=== PATIENT | female | born 1990 | race Caucasian/White ===

== ENCOUNTER 2016-03-04 19:19 | Inpatient (IN) | payer MEDICAID, OTHER ==
[~2016-03-04] VITALS: Ht 157.5 cm; Wt 96.6 kg
[~2016-03-04 19:19] MED LIST: ASEN5TAB7 SL; BUPR300T51 PO; PPI PO; QUET100T PO; RANI150T11 PO; inhaler; prazosin
[2016-03-04] MEDS ORDERED: Benzocaine-Menthol Lozenge 2/Pkg PO PRN (22:55)
[2016-03-04] MEDS ORDERED: Alum-Mag Hydrox-Simeth 30 mL Suspension PO PRN (22:55)
[2016-03-04] MEDS ORDERED: Magnesium Hydroxide 10 mL Oral Concentration PO PRN (22:55)
[2016-03-04] MEDS: LORazepam 1 mg Tablet PO PRN (23:31)
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
[2016-03-05] MEDS ORDERED: Wellbutrin (03:51)
[2016-03-05] MEDS ORDERED: Saphris PO (03:51)
[2016-03-05] MEDS ORDERED: ativan (03:51)
--- NOTE | 2016-03-05 04:52 | NUR ---
Observations from [id number] Pt arrived at 2205 and was able to complete admission paperwork without a problem. She was given a snack and some juice and oriented to the unit. Pt presented as sad and tearful, but was pleasant and appropriate when answering questions. Pt appeared asleep at 0000 and has been monitored every 15 minutes as directed.
[2016-03-05] MEDS: LORazepam 1 mg Tablet PO PRN ×4 (05:33→22:31)
[2016-03-05 10:20] VITALS: BP 115/73; PULSE 82; RESP 16
--- NOTE | 2016-03-05 13:33 | NUR ---
Nursing Note [id number] Behavior S/O: Pt out of room for meals only. Pt ate 75% of breakfast & 20% of lunch. Pt reported at noon having "racing thoughts about everything." Ativan 1 mg given at 1208. Re-evaluated pt at 1330. Pt appeared asleep at that time. Conversation tracking clear & organized with normal rate & rhythm. Pleasant & cooperative with staff & peers. A: Pt isolating to room & has poor coping skills. P: Provide supportive environment. Monitor medications & effects.
[2016-03-05] MEDS: buPROPion XL 300 mg ER24 Tablet PO SCH (14:30)
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
--- NOTE | 2016-03-05 17:48 | NUR ---
Observations [id number] Pt was asleep upon start of shift and stayed in her room much of the morning. Pt appeared sleepy and upset at times, crying while talking on the phone. Pt took a shower in the evening, and later asked to talk. Pt stated that "last time I saw my son, I didn't want to hold him, I just felt so anxious. I feel like a bad Mom." Pt was very tearful regarding her son and anxiety. This contract technical writer encouraged pt to talk with MD and Professional Poker Player regarding her anxiety and feelings and she agreed that she would. Pt spent more time in the common areas in the evening watching TV. She ate an average of 65% throughout the day. Pt was observed every 15 minutes throughout shift as directed.
--- NOTE | 2016-03-05 21:44 | NUR ---
Nursing Note [id number] Pt has had numerous tearful episodes throughout shift. Pt appears depressed and hopeless. Pt c/t state "I am a bad mom, my son is the sachin of my life but I feel like he would better off with someone else". Pt also worried about possible DC this week stating "I'm not ready to go home I don't think I will be safe". Pt encouraged to speak with MD in am regarding DC date. Pt rates anxiety 5/10, depression 5/10, and denies SI at this time. Pt is cooperative with staff and is currently watching movie in [employer]
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
--- NOTE | 2016-03-06 03:18 | NUR ---
Observations 1900 to 0700 Pt affect is flat. Pt's family visited last night. Pt and visitors both seemed to enjoy the visit. Pt was observed crying in her room. A nurse sat and talked to her and helped calm her down. pt did come out in the DR and watch TV for the rest of the evening. Pt was polite and cooperative. Pt first appeared asleep at 23:30 and was observed every 15 minutes through the night as directed.
[2016-03-06] MEDS: LORazepam 1 mg Tablet PO PRN ×4 (03:49→21:45)
--- NOTE | 2016-03-06 04:39 | NUR ---
Nursing note Night Patiient slept most of the shift for 5+hours. Awoke at 0345 and requested Ativan 1 mg for 10/04 anxiety. Effective. Back to sleep before 0430.
[2016-03-06] MEDS ORDERED: ASENAPINE 5 MG SL SCH (08:30)
[2016-03-06] MEDS: buPROPion XL 300 mg ER24 Tablet PO SCH (09:12)
[2016-03-06 12:35] VITALS: BP 107/74; PULSE 91; RESP 17
--- NOTE | 2016-03-06 13:22 | PCM.PNPSY ---
Subjective Date of Service Mar 06, 2016 Subjective I spent 30 minutes both reviewing treatment plan and providing supportive/ educational psychotherapy. I spent more than 50% of the time counseling the patient. I reviewed the treatment plan with the patient and discussed options available including the potential risks, benefits and side effects. Alicia reports a continued difficulty with mood stability. She reports she is feeling suicidal and was unsure that she can keep herself safe. She continues to have poor mood interest in a high level of guilt. Staff reports that she has been active and participating well in one-to-one unit and group activities. She slept 6.5 hours and denies manic or psychotic symptoms review. She denies medication side effects. Patient was able to identify her medications and what they were used to treat. She appeared to understand the need for medications by the questions she asked during our discussion. Current Medications Current Medications Bupropion HCl 300 mg DAILY PO Last administered on 03/06/16 09:12; Admin Dose 300 MG; Start 03/05/16 at 14:30 Cephalexin 500 mg TID PO Last administered on 03/06/16 09:12; Admin Dose 500 MG ; Start 03/05/16 at 14:30 Famotidine 20 mg BID PO Last administered on 03/06/16 09:12; Admin Dose 20 MG; Start 03/05/16 at 20:30 Hydroxyzine Pamoate 50 mg Q4H PRN PO Last administered on 03/05/16 22:31; Admin Dose 50 MG; Start 03/04/16 at 23:00 Lorazepam 1 mg Q4H PRN PO Last administered on 03/06/16 11:50; Admin Dose 1 MG ; Start 03/04/16 at 22:55 Nicotine 1 patch Q24H TOPICAL Last administered on 03/05/16 20:12; Admin Dose 1 PATCH; Start 03/05/16 at 19:00 Mental Status Exam Vital Signs Vital Signs Date Time Temp Pulse Resp B/P Pulse Ox O2 Delivery O2 Flow Rate FiO2 03/06/16 12:35 37.0 91 17 107/74 Appearance: Neat/well groomed Attitude: Pleasant, Cooperative Behavior: Overtly anxious, Tearful Affect: Labile Mood: Dysthymic, Depressed Thought Process/Associations: Logical/Sequential, Goal Directed Speech Production: Normal Speech Rate: Normal Speech Articulation: Normal Thought Content: Guilt Danger to Self/Suicidal Ideati: Active, Plan, Intent Danger to Others: None Consciousness: Alert Orientation: Person, Place, Date, Situation Memory: Grossly Intact Estimate Intellectual Function: Below Average Basis for IQ estimate: Awareness current events, Word use/vocabulary, Educational history, Employment history Attention/Concentration & Cogn: Grossly Intact Cognitive Testing Method: Abstract Reasoning during interview Insight: Limited Judgement: Limited Mental Health Plan The patient is a 20-year-old white female who is on disability for bipolar disorder and is being treated with Wellbutrin, Saphris and Ativan by nurse practitioner, Nithya through [facility]. She had a conflict with her boyfriend. She began to ruminate on suicide and told her mother that she was planning to overdose on Wellbutrin. Her mother brought her in for acute treatment of suicidal ideation. 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 I was unable to obtain history that would definitively support the diagnosis of bipolar mood disorder. She certainly does have dysthymia, poor coping skills and acute suicidal ideation. [place] AXIS I: 1. Depression, unspecified. 2. Rule out bipolar mood disorder, rule out posttraumatic stress disorder, rule out generalized anxiety disorder rule out depression. AXIS II: Deferred. AXIS III: Urinary tract infection. AXIS IV: Moderate. AXIS V: Current Global Assessment of Functioning equal to 35. Medications Treatments Patient is being provided with a high degree of safety through the structure and active adult engagement. We will focus on developing improved coping skills and identifying stressors that may have led to current episode. We will attempt to: Integrate into therapeutic groups, milieu and individual therapy. Maintain in a closely monitored and structured unit Provide low-stimulation environment Obtain collateral data to assist in treatment planning Assess degree of lability of affect and impulse control Complete safety plan Decrease frequency of relapse and need for re-hospitalization Denies thoughts of harm to self and/or others Establish a consistent sleep pattern Medication effective in stabilization of mood and/or thought process Reduce the risk of imminent harm to self and/or others by providing a safe environment Tolerates medication without side effects Patient will be on the following psychiatric medications: Wellbutrin Saphris Ativan Education: Educate patient about recreational drug use as an etiology Educate about metabolic etiologies related to obesity Address patient's legal status Voluntary Anticipate discharge in 24-72 hours Abimael Hooker MD Mar 06, 2016 13:22
--- NOTE | 2016-03-06 13:28 | NUR ---
Nursing Note [id number] Mood S/O: Pt in room most of the day except for meals. Pt ate 75% of breakfast & 100% of lunch. Pt reports depression at a "9" on a scale of 1-10/10 the worst. She states she was having suicidal ideations, but was able to contract for safety. Pt requested Ativan at 1150 for anxiety. Pt given 1 mg which was effective. Pt has been able to rest in bed this afternoon. Conversation clear & organized with normal rate & rhythm. A: Pt isolative in room & d/n participate in unit activities. P: Provide supportive environment. Monitor medications & effects.
--- NOTE | 2016-03-06 13:38 | NUR ---
Assistant Art Director./ c.m. S.:"I'm not very good. I don't think I will be a good mom to my son." O.: met with pt. and MD together in pt.'s room. She was upset and made a quote above. She was concerned about being anxious around her son - "I didn't feel right." She had a phone conversation with her ex-b.f. yesterday. She said that she wasn't thinking about going back to him. She "felt "sad and suicidal" because she wasn't sure about her feelings about her son. She couldn't tell if she was depressed or not - "I'm just sad." She denied HI. She denied AH/VH or paranoid/delusional thoughts. Youth Director mentioned about Young mother's group and pt. said that she was told about it before but she didn't go to that group. She was concerned about possible discharge home soon. Youth Director called [facility] in [place] and arranged pt.'s follow up. A.: pt. is cooperative, very passive and avoidant, isolative. P.: monitor behavior, work on Safety plan, work on anxiety management skills; follow care plan.
--- NOTE | 2016-03-06 21:23 | NUR ---
Obs Dayshift Pt is very tearful, on phone w/ mom most of the day. Pt is quiet, reserved, sad, depressed. Did spend a little time in the milieu drawing/coloring. Mostly spent the day in her room in bed napping or on the phone. Very little engaging w/ peers, isolative. Good ADL's, Good meals
--- NOTE | 2016-03-07 02:09 | NUR ---
Observations 1900 to 0700 Pt affect is flat. Pt spent most of her evening out in the DR and watching TV for the rest of the evening. Pt was polite and cooperative. Pt first appeared asleep at 21:45 and was observed every 15 minutes through the night as directed.
[2016-03-07] MEDS: LORazepam 1 mg Tablet PO PRN ×2 (03:09→09:14)
--- NOTE | 2016-03-07 06:30 | NUR ---
Sleep 11p-7a Adequate sleep through the night. She awoke briefly at 0300 and requested medication for anxiety/sleep. She received Ativan 1mg po prn for sleep with good results. Total sleep 8+ hours.
[2016-03-07] MEDS: buPROPion XL 300 mg ER24 Tablet PO SCH (08:49)
--- NOTE | 2016-03-07 11:12 | PCM.DIMED ---
Discharge Instructions Date of Service Mar 07, 2016 Dates of Hospitalization Mar 04, 2016 at 22:09 Discharge Diagnosis Discharge Diagnosis AXIS I: 1. Depression, unspecified. 2. Rule out bipolar mood disorder, rule out posttraumatic stress disorder, rule out generalized anxiety disorder, rule out depression. AXIS II: Deferred. AXIS III: Urinary tract infection. AXIS IV: Moderate. AXIS V: Current Global Assessment of Functioning equal to 45 Diet No restrictions Activity No restrictions Call your provider Fever or Chills Patient Instructions I Strongly encouraged patient to follow up with outpatient care: 1-Recommended patient takes medication as prescribed and not alter this unless under the direct care of a provider: [facility] 2-Recommend client refrain from recreational drugs and alcohol while taking psychiatric medications. 3-Recommend client start a 12 step program to deal with issues of addiction. 4-Recommend patient attempt to find a therapist or group to deal with impulse control and interpersonal relationship conflicts Follow-up plan Follow-up with therapist Elissa ye 03/14/2016 10 AM [facility] Follow-up with Deysi Neves [facility] Follow up with Jose PETE 03/29/2016 11 AM [facility] Follow-up with PCP in: 2 weeks Abimael Hooker MD Mar 07, 2016 11:12
[2016-03-07] MEDS ORDERED: BUPR300T51 PO (11:14)
[2016-03-07] MEDS ORDERED: CEPH500C PO (11:14)
[2016-03-07] MEDS ORDERED: ASEN5TAB7 SL (11:14)
[2016-03-07] MEDS ORDERED: BusPIRone 15 mg Dividose Tablet PO SCH (11:15)
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
--- NOTE | 2016-03-07 15:08 | NUR ---
Nursing Note Discharge Patient cooperative with discharge process. Acknowledges understanding of d/c instructions and has a copy with them upon leaving unit at 1315. Belongings accounted for and with patient. Prescriptions faxed to patients pharmacy. Patient denies harmful thoughts and hallucinations at this time.
== END 2016-03-07 13:15 | disposition home or self-care (01) | DRG 754 ==
LOC: MHC 22:09
PROVIDERS: ADMIT Psychiatry & Neurology Psychiatry; ATTEND Psychiatry & Neurology Psychiatry
DX: F32.9 Major depressive disorder, single episode, unspecified (principal); N39.0 Urinary tract infection, site not specified; F31.9 Bipolar disorder, unspecified